=== PATIENT | female | born 1980 | race African-American/Black ===

== ENCOUNTER 2021-07-05 09:30 | Emergency (ER) | payer OTHER ==
[~2021-07-05] VITALS: Ht 165.1 cm; Wt 99.8 kg
== END 2021-07-05 10:27 | disposition home or self-care (01) ==
LOC: FSED 09:55
DX: M25.571 Pain in right ankle and joints of right foot (principal); M77.51 Other enthesopathy of right foot and ankle; Z33.1 Pregnant state, incidental
CPT/HCPCS: 99283